=== PATIENT | male | born 1955 | race Caucasian/White ===

== ENCOUNTER 2022-05-10 05:59 | Observation (INO) | payer MEDICARE ==
[2022-05-04 11:40] VITALS: BP 154/84
[2022-05-04 11:48] LABS: BASOPHILS % (AUTO) 1.4 % (0.0-5.0); HEMATOCRIT 47.2 % (42-54); LYMPHOCYTES % (AUTO) 21.6 % (21.0-51.0); MEAN CORPUSCULAR HEMOGLOBIN 28.2 pg (27.0-33.0); MEAN CORPUSCULAR HGB CONC 31.6 g/dL (32.0-36.0); MEAN CORPUSCULAR VOLUME 89.4 fL (79-99); MONOCYTES % (AUTO) 11.8 % (3.0-13.0); PLATELET COUNT (AUTO) 271 K/uL (130-400); RED BLOOD CELL COUNT(AUTO) 5.28 MIL/uL (4.50-6.20); RED CELL DISTRIBUTION WIDTH 14.2 % (11.0-15.5); WHITE BLOOD COUNT (AUTO) 8.1 K/uL (4.8-10.8)
[2022-05-04 12:10] LABS: INR 0.97 (0.85-1.15); PROTHROMBIN TIME 10.6 SEC (9.6-11.6)
[2022-05-04 12:12] LABS: PARTIAL THROMBOPLASTIN TIME 29.5 SEC (26.3-35.5)
[2022-05-04 12:17] LABS: POTASSIUM 4.7 mmol/L (3.5-5.1)
[~2022-05-10] VITALS: Ht 180.3 cm; Wt 124.5 kg
[2022-05-10] VITALS (16 sets, daily range): BP systolic 120–142; BP diastolic 63–85
[~2022-05-10 05:59] MED LIST: ATOR10 PO; CARV6.25 PO; CHOL200013 PO; ESOM40CA54 PO; LISI5TAB21 PO; MULT-1258 PO; ROPIVICAINE 250MG+KETOROLAC 15MG+EPINEPHRINE 0.3+CLONIDINE 80 IV PRN
[2022-05-10] MEDS ORDERED: CEFAZOLIN SODIUM 2 GM VIAL ONE (06:31)
[2022-05-10] MEDS ORDERED: LACTATED RINGERS 1000ML 1,000 ML IV ONE (06:31)
[2022-05-10] MEDS: CLINDAMYCIN IVPB 600MG/50ML 50 ML IV SCH ×2 (06:45→08:44)
[2022-05-10] MEDS: TRANEXAMIC ACID 1000MG/10ML IJ SCH ×2 (07:00→08:50)
[2022-05-10] MEDS ORDERED: LACTATED RINGERS 1000ML 1,000 ML IV SCH (07:00)
[2022-05-10] MEDS ORDERED: TRANEXAMIC ACID 1000MG/10ML ONE (07:51)
[2022-05-10] MEDS ORDERED: PROPOFOL 10 MG/ML 20ML VIAL IV ONE (08:24)
[2022-05-10] MEDS ORDERED: MIDAZOLAM HCL 1 MG/ML 2ML VIAL ONE (08:24)
[2022-05-10] MEDS ORDERED: ROCURONIUM 10MG/1ML SYR 10 MG/ML ML ONE ×2 (08:24→08:53)
[2022-05-10] MEDS ORDERED: FENTANYL CITRATE PF 50 MCG/1 ML 2ML VIAL ONE ×2 (08:54→10:32)
[2022-05-10] MEDS ORDERED: EPHEDRINE SULFATE 50 MG/ML AMPULE ONE (08:59)
[2022-05-10] MEDS ORDERED: MORPHINE 4 MG SYG IVP PRN (09:00)
[2022-05-10] MEDS ORDERED: KCL 20 MEQ ERTAB PO PRN (09:00)
[2022-05-10] MEDS: CARVEDILOL 6.25 MG TABLET PO SCH ×2 (09:00→20:13)
[2022-05-10] MEDS: 0.9%NACL 1000ML 1,000 ML IV SCH ×2 (09:00→20:14)
[2022-05-10] MEDS: PANTOPRAZOLE 40 MG TAB DR PO SCH (09:00)
[2022-05-10] MEDS ORDERED: ONDANSETRON 4MG INJ IVP PRN (09:00)
[2022-05-10] MEDS ORDERED: POTASSIUM CHLORIDE 20MEQ/100ML 100 ML IV PRN (09:00)
[2022-05-10] MEDS ORDERED: LIDOCAINE HCL-MPF 1% 2ML VIAL IV PRN (09:00)
[2022-05-10] MEDS: MULTIVITAMIN TABLET PO SCH (09:00)
[2022-05-10] MEDS ORDERED: POTASSIUM CHLORIDE 10% ELIXIR 20 MEQ/15 ML UDCUP PO PRN (09:00)
[2022-05-10] MEDS: POLYETHYLENE GLYCOL 3350 17 GM POWD.PACK PO SCH (09:00)
[2022-05-10] MEDS: LISINOPRIL 5 MG TABLET PO SCH (09:00)
[2022-05-10] MEDS ORDERED: LIDOCAINE 1%-EPI 1:100,000 20 ML VIAL IJ ONE (10:15)
[2022-05-10] MEDS ORDERED: ROPIVACAINE 0.5% 5MG/ML 30ML IJ ONE (10:16)
[2022-05-10] MEDS ORDERED: ONDANSETRON 4MG INJ ONE (10:21)
[2022-05-10] MEDS ORDERED: NEOSTIGMINE 5MG/5ML SYR IV ONE (10:21)
[2022-05-10] MEDS ORDERED: GLYCOPYRROLATE 1 MG/5 ML SYRINGE ONE (10:21)
[2022-05-10] MEDS: ACETAMINOPHEN 1,000 MG/100 ML VIAL IV SCH ×3 (11:13→20:14)
[2022-05-10] MEDS: IBUPROFEN 800MG + NS 250ML IV SCH ×2 (15:10→21:42)
[2022-05-10] MEDS: TRAMADOL HCL 50 MG TABLET PO SCH ×3 (15:10→23:21)
[2022-05-10] MEDS: CEFAZOLIN SODIUM 2 GM VIAL IVPB SCH ×2 (15:54→22:28)
[2022-05-11 04:07] VITALS: BP 125/63
[2022-05-11] MEDS: TRAMADOL HCL 50 MG TABLET PO SCH ×4 (04:38→22:37)
[2022-05-11 04:43] LABS: HEMATOCRIT 38.8 % (42-54); MEAN CORPUSCULAR HEMOGLOBIN 28.4 pg (27.0-33.0); RED BLOOD CELL COUNT(AUTO) 4.36 MIL/uL (4.50-6.20); RED CELL DISTRIBUTION WIDTH 14.2 % (11.0-15.5); WHITE BLOOD COUNT (AUTO) 9.2 K/uL (4.8-10.8)
[2022-05-11 04:54] LABS: CREATININE 0.9 mg/dL (0.5-1.5)
[2022-05-11] MEDS: IBUPROFEN 800MG + NS 250ML IV SCH (04:55)
[2022-05-11] MEDS: 0.9%NACL 1000ML 1,000 ML IV SCH (05:00)
[2022-05-11 08:00] VITALS: BP 128/69
[2022-05-11] MEDS: POLYETHYLENE GLYCOL 3350 17 GM POWD.PACK PO SCH (08:31)
[2022-05-11] MEDS: PANTOPRAZOLE 40 MG TAB DR PO SCH (08:31)
[2022-05-11] MEDS: LISINOPRIL 5 MG TABLET PO SCH (08:31)
[2022-05-11] MEDS: HYDROCODONE/ACETAMINOPHEN 10/325 MG TAB PO PRN ×2 (08:32→18:44)
[2022-05-11] MEDS: CARVEDILOL 6.25 MG TABLET PO SCH ×2 (08:32→19:57)
[2022-05-11] MEDS: MULTIVITAMIN TABLET PO SCH (08:33)
[2022-05-11] MEDS: ASPIRIN 81 MG EC TAB PO SCH ×2 (08:33→19:56)
[2022-05-11 10:13] VITALS: BP 115/63
[2022-05-11 12:00] VITALS: BP 139/67
[2022-05-11 16:00] VITALS: BP 145/73
[2022-05-11] MEDS: HYDROCODONE/ACETAMINOPHEN 5/325 MG TAB PO PRN (16:04)
[2022-05-11 20:07] VITALS: BP 133/67
[2022-05-12 00:14] VITALS: BP 146/73
[2022-05-12 04:02] VITALS: BP 128/64
[2022-05-12] MEDS: TRAMADOL HCL 50 MG TABLET PO SCH ×2 (05:09→11:53)
[2022-05-12] MEDS: HYDROCODONE/ACETAMINOPHEN 10/325 MG TAB PO PRN ×2 (06:00→10:12)
[2022-05-12] MEDS ORDERED: HYDRALAZINE 20MG/ML VIAL IV PRN (06:00)
[2022-05-12 08:00] VITALS: BP 147/69
[2022-05-12] MEDS: POLYETHYLENE GLYCOL 3350 17 GM POWD.PACK PO SCH (10:12)
[2022-05-12] MEDS: ASPIRIN 81 MG EC TAB PO SCH (10:13)
[2022-05-12] MEDS: LISINOPRIL 5 MG TABLET PO SCH (10:13)
[2022-05-12] MEDS: CARVEDILOL 6.25 MG TABLET PO SCH (10:13)
[2022-05-12] MEDS: PANTOPRAZOLE 40 MG TAB DR PO SCH (10:13)
[2022-05-12] MEDS: MULTIVITAMIN TABLET PO SCH (10:14)
[2022-05-12 11:45] VITALS: BP 133/69
[2022-05-12] MEDS ORDERED: BISA10SU61 RC (12:41)
[2022-05-12] MEDS ORDERED: AEC81 PO (12:41)
[2022-05-12] MEDS: HYDROCODONE/ACETAMINOPHEN 5/325 MG TAB PO PRN (13:09)
[2022-05-13] MEDS ORDERED: BISACODYL 10 MG SUPP.RECT RC PRN (09:00)
== END 2022-05-12 15:20 ==
LOC: DAH 05:59 → DAHIP 06:00 → DAH 06:00 → 4BH 12:45
PROVIDERS: ADMIT Orthopaedic Surgery; ATTEND Orthopaedic Surgery
DX: M17.11 Unilateral primary osteoarthritis, right knee (principal); Z20.822 Contact with and (suspected) exposure to COVID-19; M25.561 Pain in right knee; E66.9 Obesity, unspecified; Z68.37 Body mass index [BMI] 37.0-37.9, adult; Z79.899 Other long term (current) drug therapy; Z98.890 Other specified postprocedural states
CPT/HCPCS: 80048 ×2; 85025; 85610; 85730; 87426; 36415 ×2; 93005; 87641; 64447; 27447; 20985; 96365; 96366 ×2; 96367; 96368; 97161; 97039 ×5; 97530 ×5; 85027; 82948; 97116 ×4; A6260; J1741 ×4; G0378 ×49; A4663; J7030; J7120 ×2; A4649 ×4; A4600; J3010 ×2; J3490 ×8; J2710; J0171; J2250; J2704; J2405; J2795 ×2; J1885; J0735; J0690 ×2; A6223; G0168; C1776 ×4; A5120; A4215; A4223; A4222; A4221

== ENCOUNTER → 2023-03-09 | Outpatient (CLI) | payer MEDICARE ==
[~2023-03-09] MED LIST changes: +AEC81 PO; +BISA10SU61 RC; -ROPIVICAINE 250MG+KETOROLAC 15MG+EPINEPHRINE 0.3+CLONIDINE 80 IV PRN
== END | disposition home or self-care (01) ==
LOC: SHCH 07:38
PROVIDERS: ATTEND Student in an Organized Health Care Education/Training Program
DX: I71.40 Abdominal aortic aneurysm, without rupture, unspecified (principal)
CPT/HCPCS: 93978

== ENCOUNTER → 2023-04-13 | Outpatient (CLI) | payer MEDICARE ==
[2023-04-13 12:32] LABS: THYROID STIMULATING HORMONE 5.22 uIU/mL (0.36-3.74)
== END | disposition home or self-care (01) ==
LOC: LAB 09:25
PROVIDERS: ATTEND Student in an Organized Health Care Education/Training Program
DX: I10 Essential (primary) hypertension (principal); R06.02 Shortness of breath; I44.7 Left bundle-branch block, unspecified; E78.2 Mixed hyperlipidemia
CPT/HCPCS: 36415; 80061; 84439; 84443; 84481

== ENCOUNTER → 2024-04-11 | Outpatient (CLI) | payer MEDICARE ==
[~2024-04-11] MED LIST changes: -ESOM40CA54 PO; +ESOM40CA66 PO
[2024-04-11 12:53] LABS: CHOLESTEROL 177 mg/dL (<200); HDL CHOLESTEROL 47 mg/dL (29-71); LDL DIRECT 125 mg/dL (0-99); TRIGLYCERIDES 66 mg/dL (30-200)
== END | disposition home or self-care (01) ==
LOC: LAB 10:32
PROVIDERS: ATTEND Student in an Organized Health Care Education/Training Program
DX: E78.2 Mixed hyperlipidemia (principal)
CPT/HCPCS: 36415; 80061

== ENCOUNTER → 2024-05-28 | Outpatient (CLI) | payer MEDICARE ==
[2024-05-28 12:27] LABS: CHOLESTEROL 168 mg/dL (<200); HDL CHOLESTEROL 48 mg/dL (29-71); LDL DIRECT 115 mg/dL (0-99); TRIGLYCERIDES 65 mg/dL (30-200)
== END | disposition home or self-care (01) ==
LOC: LAB 11:03
PROVIDERS: ATTEND Student in an Organized Health Care Education/Training Program
DX: E78.2 Mixed hyperlipidemia (principal)
CPT/HCPCS: 36415; 80061